=== PATIENT | female | born 1940 | race Caucasian/White ===

== ENCOUNTER 2021-03-20 16:10 | Day surgery (SDC) | payer MEDICARE, BC ==
[2021-03-20] MEDS ORDERED: Depo-Medrol 40 MG/ML IM ONE (16:11)
[2021-03-20] MEDS ORDERED: Sodium Chloride 0.9(Preservative Free) 10 ML IJ ONE (16:11)
[2021-03-20] MEDS ORDERED: DIPRIVAN 200 MG/20 ML IV ONE (17:48)
[2021-03-20] MEDS ORDERED: Lactated Ringers 0 ML IV ONE (18:01)
[2021-03-20] MEDS ORDERED: Lactated Ringers 1,000 ML IV ONE (19:02)
--- NOTE | 2021-03-21 11:54 | XRAY ---
31 seconds fluoroscopy time in surgery for L3-L5 transforaminal ANITA.
--- NOTE | 2021-03-24 01:04 | XRAY ---
Indication: L3-L5 transforaminal ANITA. Intraoperative fluoroscopy was provided for 31 seconds. A single digital spot image submitted for interpretation demonstrates posterior needle tips projected over the expected course of the left L3 and L4 nerve roots. A small amount of contrast has been injected for needle tip placement. Correlate with intraoperative findings/report.
== END 2021-03-20 18:15 | disposition home or self-care (01) ==
LOC: SDC-PAIN 16:10
PROVIDERS: ATTEND Psychiatry & Neurology Pain Medicine
DX: M54.16 Radiculopathy, lumbar region (principal); Z79.899 Other long term (current) drug therapy
CPT/HCPCS: 64483; 64484; 72100; 77002; J1030; J2704; Q9966

== ENCOUNTER 2022-08-26 07:48 | Emergency (ER) | payer MEDICARE, BC ==
--- NOTE | 2022-08-26 07:57 | ERPHSYRPT ---
- History of Present Illness Time Seen by Provider: 08/26/22 07:57 Source: patient Exam Limitations: no limitations Physician History: This is an 82-year-old white female patient who presents with left sublingual swelling/abscess with expressible pus intraorally. Patient's states that the issues been present for weeks. Patient was seen by her dentist yesterday and the dentist attempted to explore the left sublingual duct directly with question of removal of some "gravel" but no stone was removed per patient's . Patient was started on clindamycin and [place]. There is been symptoms of redness to the anterior neck, hoarseness mild painful swallowing. Patient has a history of gastroesophageal reflux disease and hypothyroidism. She denies chest pain and she denies shortness of breath. Timing/Duration: gradual onset Severity: mild (To moderate) ENT Location: mouth (Left sublingual) Prearrival Treatment: prescription meds Modifying Factors: Improves With: other (Talking and swallowing precipitates some discomfort) Associated Symptoms: other (Sublingual swelling left side greater than right) Allergies/Adverse Reactions: No Known Drug Allergies Allergy (Unverified 07/20/17 10:02) Home Medications: Hydroxychloroquine Sulfate 200 mg PO DAILY 07/20/17 [History] Levothyroxine Sodium [Synthroid] 100 mcg PO DAILY 07/20/17 [History] Omeprazole 20 MG [Prilosec 20 mg] 40 mg PO DAILY 07/20/17 [History] predniSONE [Prednisone] 5 mg PO DAILY 07/20/17 [History] 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/Zn [Caltrate+D3 Plus Mineral Minis] 1 each PO DAILY 08/26/22 [History] Duloxetine HCl 30 mg [Cymbalta 30 MG Capsule] 1 ea DAILY 08/26/22 [History ] clindamycin HCL [Clindamycin HCl] 300 mg PO TID 08/26/22 [History] Travel Risk - International Travel Have you traveled outside of the country in past 3 weeks: No - Coronavirus Screening Are you exhibiting any of the following symptoms?: No Close contact with a COVID-19 positive Pt in past 14-21 Days: No - Review of Systems Constitutional: No Symptoms Eyes: No Symptoms Ears, Nose, & Throat: Other (Left sublingual swelling and tenderness and expressible pus) Respiratory: No Symptoms Cardiac: No Symptoms Abdominal/Gastrointestinal: No Symptoms Genitourinary Symptoms: No Symptoms Musculoskeletal: No Symptoms Skin: No Symptoms Neurological: No Symptoms Psychological: No Symptoms Endocrine: No Symptoms Hematologic/Lymphatic: No Symptoms Immunological/Allergic: No Symptoms All Other Systems: Reviewed and Negative - Past Medical History Pertinent Past Medical History: Yes Neurological History: No Pertinent History ENT History: No Pertinent History Cardiac History: No Pertinent History Respiratory History: No Pertinent History Endocrine Medical History: Hypothyroidism Musculoskeletal History: Other GI Medical History: Colitis, Diverticulitis History: No Pertinent History Psycho-Social History: No Pertinent History Female Reproductive Disorders: No Pertinent History Other Medical History: CYST REMOVED FROM BACK 7-8 YEARS AGO. NO RESIDUAL PAIN OR EFFECTS. HX LUPUS. HX DUPYTREN'S RIGHT - Past Surgical History Past Surgical History: Yes Neuro Surgical History: No Pertinent History Cardiac: No Pertinent History Respiratory: No Pertinent History Gastrointestinal: Appendectomy Genitourinary: No Pertinent History Musculoskeletal: Other Female Surgical History: No Pertinent History Other Surgical History: back surgery for cyst removal 5 yrs ago - Social History Smoking Status: Former smoker Exposure to second hand smoke: No Drug Use: none - Nursing Vital Signs Nursing Vital Signs: Initial Vital Signs Temperature 98.1 F 08/26/22 07:51 Pulse Rate 98 H 08/26/22 07:51 Respiratory Rate 18 08/26/22 07:51 Blood Pressure 145/98 08/26/22 07:51 O2 Sat by Pulse Oximetry 98 08/26/22 07:51 Pain Scale Pain Intensity 6 - Physical Exam General Appearance: no apparent distress, alert, anxiety Eye Exam: bilateral eye: normal inspection, PERRL, EOMI Ear Exam: bilateral ear: auricle normal Nasal Exam: normal inspection Throat Exam: pharynx normal, moist mucus membranes, tongue swollen (Left sublingual area swollen. 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, normal mood/affect, nml cerebellar function, nml station & gait, sensation nml Skin Exam: normal color, warm, dry SpO2 Interpretation: normal O2 Delivery: Room Air - Course Nursing assessment & vital signs reviewed: Yes Ordered Tests: Active Orders 24 hr Category Date Time Status IV Insertion STAT Care 08/26/22 07:57 Active NECK WO CONTRAST [CT] Stat Exams 08/26/22 08:16 Completed BLOOD CULTURE Stat Lab 08/26/22 08:00 Received CBC W DIFF Stat Lab 08/26/22 07:57 Completed CMP Stat Lab 08/26/22 08:11 Completed CULTURE,WOUND Stat Lab 08/26/22 08:45 Received Medication Summary Discontinued Medications Generic Name Dose Route Start Last Admin Trade Name Sylvia PRN Reason Stop Dose Admin Ampicillin Sodium/Sulbactam Sodium Confirm 08/26/22 08:23 Ampicillin /Sulbactam 3 G/Vial Administered 08/26/22 08:24 Dose 3 g .ROUTE .STK-MED ONE Ampicillin Sodium/Sulbactam 100 mls @ 300 mls/hr 08/26/22 08:14 08/26/22 08:30 Sodium 3 g/ Sodium Chloride IV 08/26/22 08:33 300 mls/hr STAT ONE Administration Sodium Chloride 1,000 mls @ 999 mls/hr 08/26/22 08:16 08/26/22 09:47 Sodium Chloride 0.9% 1000 Ml IV 08/26/22 09:16 Infused .Q1H1M STA Infusion Sodium Chloride Confirm 08/26/22 08:23 Sodium Chloride 0.9% 1000 Ml Administered 08/26/22 08:24 Dose 1,000 mls @ ud .ROUTE .STK-MED ONE Sodium Chloride Confirm 08/26/22 08:25 Sodium Chloride 0.9% Administered 08/26/22 08:26 Dose 100 mls @ ud .ROUTE .STK-MED ONE Ketorolac Tromethamine 30 mg 08/26/22 08:11 08/26/22 08:29 Ketorolac Tromethamine 30 Mg/Ml Inj IV 08/26/22 08:12 30 mg STAT ONE Administration Ketorolac Tromethamine Confirm 08/26/22 08:23 Ketorolac Tromethamine 30 Mg/Ml Inj Administered 08/26/22 08:24 Dose 30 mg .ROUTE .STK-MED ONE Lab/Rad Data: Laboratory Result Diagrams 08/26/22 07:57 08/26/22 08:11 Laboratory Results 08/26/22 08/26/22 Range/Units 08:11 07:57 WBC 11.7 H (4.0-10.5) x10^3/uL RBC 4.43 (4.1-5.4) x10^6/uL Hgb 12.3 (12.0-16.0) g/dL Hct 38.2 (35-47) % MCV 86.2 (78-100) fL MCH 27.8 (26-32) pg MCHC 32.2 (32-36) g/dL RDW 13.6 (11.5-14.0) % Plt Count 209 (150-450) x10^3/uL MPV 9.7 (7.5-11.0) fL Gran % 83.9 H (36.0-66.0) % Immature Gran % (Auto) 0.3 (0.00-0.4) % Nucleat RBC Rel Count 0.0 (0.00-0.1) % Eos # (Auto) 0.02 (0-0.5) x10^3/uL Immature Gran # (Auto) 0.04 H (0.00-0.03) x10^3u/L Absolute Lymphs (auto) 1.03 (1.0-4.6) x10^3/uL Absolute Monos (auto) 0.77 (0.0-1.3) x10^3/uL Absolute Nucleated RBC 0.00 (0.00-0.01) x10^3u/L Lymphocytes % 8.8 L (24.0-44.0) % Monocytes % 6.6 (0.0-12.0) % Eosinophils % 0.2 (0.00-5.0) % Basophils % 0.2 (0.0-0.4) % Absolute Granulocytes 9.78 H (1.4-6.9) x10^3/uL Basophils # 0.02 (0-0.4) x10^3/uL Sodium 136 L (137-145) mmol/L Potassium 4.0 (3.5-5.1) mmol/L Chloride 104 (98-107) mmol/L Carbon Dioxide 23 (22-30) mmol/L Anion Gap 12.3 (5-15) MEQ/L BUN 12 (7-17) mg/dL Creatinine 0.70 (0.52-1.04) mg/dL Estimated GFR > 60.0 ML/MIN Glucose 121 H (74-106) mg/dL Calcium 8.9 (8.4-10.2) mg/dL Total Bilirubin 1.00 (0.2-1.3) mg/dL AST 23 (14-36) U/L ALT 19 (0-35) U/L Alkaline Phosphatase 66 (38-126) U/L Serum Total Protein 7.4 (6.3-8.2) g/dL Albumin 4.1 (3.5-5.0) g/dL - Progress Progress: unchanged Progress Note: 08/26/22 09:54 CT scan of the neck without contrast shows left sublingual and left submandibular sialoadenitis with tiny calculus in the left Bartholin's duct. There is left cervical adenopathy. No focal/walled off fluid collection or abscess Counseled pt/family regarding: lab results, diagnosis, need for follow-up, rad results - Departure Departure Disposition: Home Clinical Impression: Sialoadenitis of sublingual gland, Sialoadenitis of submandibular gland Condition: Stable Critical Care Time: No Referrals: Malcolm SHAVER [Primary Care Provider] - Follow up/PCP as directed Additional Instructions: Continue with warm water rinsing of the glans of the floor the mouth. Continue massaging and milking the left submandibular gland as discussed. Continue your antibiotics and pain medicine as prescribed. May add ibuprofen 600 mg orally with food 3 times a day for the next 5 days for pain control. Follow-up with ENT at the appointment date and time.
[2022-08-26] MEDS ORDERED: TORAdol 30 mg Injection IV ONE (08:11)
[2022-08-26] MEDS ORDERED: Unasyn 3 GM Vial*** 3 G in Sodium Chloride 0.9% 100 ML IV ONE (08:14)
[2022-08-26 08:16] LABS: Absolute Neutrophil Ct (ANC) 9.78 x10^3/uL (1.4-6.9); Basophil (Absolute #) 0.02 x10^3/uL (0-0.4); Eosinophil % 0.2 % (0.00-5.0); Eosinophil (Absolute #) 0.02 x10^3/uL (0-0.5); Hematocrit 38.2 % (35-47); Hemoglobin 12.3 g/dL (12.0-16.0); Lymphocyte (Absolute #) 1.03 x10^3/uL (1.0-4.6); Lymphocytes % 8.8 % (24.0-44.0); Mean Cell Volume 86.2 fL (78-100); Mean Corpuscular Hemoglobin 27.8 pg (26-32); Mean Corpuscular Hgb Concent. 32.2 g/dL (32-36); Mean Platelet Volume 9.7 fL (7.5-11.0); Monocyte (Absolute #) 0.77 x10^3/uL (0.0-1.3); Monocytes % 6.6 % (0.0-12.0); Neutrophil % 83.9 % (36.0-66.0); Platelet Count 209 x10^3/uL (150-450); Red Blood Count 4.43 x10^6/uL (4.1-5.4); Red Cell Distribution Width 13.6 % (11.5-14.0); White Blood Count 11.7 x10^3/uL (4.0-10.5)
[2022-08-26] MEDS ORDERED: Sodium Chloride 0.9% 1000 ML 1,000 ML IV STA (08:16)
[2022-08-26] MEDS ORDERED: Sodium Chloride 0.9% 1000 ML 1,000 ML ONE (08:23)
[2022-08-26] MEDS ORDERED: TORAdol 30 mg Injection ONE (08:23)
[2022-08-26] MEDS ORDERED: Unasyn 3 GM Vial ONE (08:23)
[2022-08-26] MEDS ORDERED: Sodium Chloride 0.9% 100 ML ONE (08:25)
[2022-08-26 08:55] LABS: ALBUMIN 4.1 g/dL (3.5-5.0); ALKALINE PHOSPHATASE 66 U/L (38-126); ANION GAP 12.3 MEQ/L (5-15); BLOOD UREA NITROGEN 12 mg/dL (7-17); CHLORIDE 104 mmol/L (98-107); Calcium 8.9 mg/dL (8.4-10.2); Carbon Dioxide 23 mmol/L (22-30); EST GLOMERULAR FILTRATION RATE > 60.0 ML/MIN; Glucose 121 mg/dL (74-106); SGOT/AST 23 U/L (14-36); SGPT/ALT 19 U/L (0-35); SODIUM 136 mmol/L (137-145); Total Protein 7.4 g/dL (6.3-8.2)
--- NOTE | 2022-08-26 09:44 | XRAY ---
Indication: Left sublingual abscess 1 month. Neck erythema and swelling. Multiple contiguous axial images obtained through the neck without contrast as ordered. Comparison: August 06, 2007 Multiple bilateral dental amalgams produces beam artifact. Floor of mouth demonstrates enlarged left sublingual gland measuring up to 1.6 x 2.4 cm in greatest axial dimension. Also enlarged adjacent left submandibular gland measuring at least 3.4 x 1.6 cm. Findings favor sialoadenitis. 4-5 mm calculus seen in expected region of left Bartholin's duct. No focal walled off fluid collection/abscess on this noncontrast exam.. Enlarged matted left level I cervical adenopathy overall measuring at least 3.2 x 2.5 x 3.3 cm presumed reactive. Smaller centimeter/subcentimeter left cervical lymph nodes. Supra-and infraglottic airway widely patent. Normal epiglottis. Parotid glands bilaterally symmetric. Major arteries and veins are normal in course and caliber. Thyroid gland unremarkable for noncontrast exam. Osseous structures intact with mild osteopenia and mild/moderate degenerative changes of the visualized spine. Base of brain and lung apices unremarkable. Impression: 1. Left sublingual and left submandibular sialoadenitis with tiny calculus left Bartholin's duct. 2. Left cervical reactive lymphadenopathy.
[2022-08-26] MEDS ORDERED: HYDROCODONE-ACETAMIN 2.5-108/5 ML SOLUTION PO STA (10:14)
[2022-08-26] MEDS ORDERED: HYDROCODONE-ACETAMIN 2.5-108/5 ML SOLUTION ONE (10:24)
[2022-08-26] MEDS ORDERED: Sodium Chloride 3 ML UD NEBULES IH ONE (10:42)
[2022-08-26] MEDS ORDERED: Racepinephrine INH Solution 2.25% IH ONE ×2 (10:42→11:13)
[2022-08-26] MEDS ORDERED: solu-MEDROL 125 MG, Sterile H2O 10 ml 2 ML IV ONE ×2 (10:43)
[2022-08-26] MEDS ORDERED: Sterile H2O 10 ml IJ ONE (10:46)
[2022-08-26] MEDS ORDERED: solu-MEDROL ONE (10:47)
[2022-08-26 11:09] VITALS: BP 118/60
[2022-08-26 11:18] VITALS: PULSE 95; O2SAT 96
--- NOTE | 2022-08-26 11:34 | XRAY ---
Indication: Cough. Comparison: None PA/lateral chest inflated and clear. Heart not enlarged with tortuous descending aorta. Bony thorax intact with mild osteopenia and degenerative changes. Impression: Nonacute chest with chronic features.
== END 2022-08-26 11:27 | disposition home or self-care (01) ==
LOC: ED 07:48
DX: K11.20 Sialoadenitis, unspecified (principal); R49.0 Dysphonia; R07.0 Pain in throat; Z79.891 Long term (current) use of opiate analgesic; Z79.899 Other long term (current) drug therapy
CPT/HCPCS: 36000; 36415; 70490; 71046; 80053; 85025; 87040; 87070; 94640; 96360; 96374; 96375; 99284; J0295; J1885; J2930; A9270-GY